=== PATIENT | female | born 1955 | race Caucasian/White ===

== ENCOUNTER 2024-10-11 16:43 | Emergency (ER) | payer MEDICARE, BC, SELFPAY ==
[2024-10-11 16:49] VITALS: BP 140/84; PULSE 96; RESP 18; TEMP 36.9; O2SAT 97
--- NOTE | 2024-10-11 17:12 | W.ED.GENAD ---
Discharge Plan Disposition Patient Disposition: Home Condition: Stable Discharge Details Clinical Impression: Arthritis of knee, right Primary Care Provider: Mariella Kirk ED Provider: Karen Moya Home Meds and New Rx's Prescriptions: No Action losartan 50 mg tablet 50 mg PO DAILY Discharge Instructions Instructions: Osteoarthritis Additional Instructions: You were seen in the emergency department today for evaluation of worsening of your knee pain, which is likely due to an exacerbation of your arthritis after abnormal positioning in the MRI. You received medications to improve pain and inflammation, and I recommend that you continue to use multimodal pain management including ice, rest and elevation, topical treatments. Please use therapeutic dosing of Tylenol (acetaminophen) & Advil (ibuprofen) in an alternating fashion as follows: Take 1000mg of Tylenol every 6 hours without missing doses- that is 4 times per day. Snf in between the Tylenol doses, take 600mg of Advil also on a 6 hour schedule, that is also 4 times per day. With this strategy, you will be taking something for fever/pain as often as every 3 hours. The daily maximum dosing of Tylenol is 4000mg, and the daily maximum dosing of Advil is 2400mg. Please note that some common cold medications & prescription pain medications may contain acetaminophen and you need to read OTC drug labels and factor that in to maximum daily doses. I have sent you home with a small number of stronger pain medications called morphine, which you can use in conjunction with the above-noted strategy for any ongoing severe pain. I recommend taking this medication at nighttime to start, and avoiding driving, operating machinery or other important activities until you know how your body reacts to this medication. I have sent a referral to establish with orthopedics through [facility], they should contact you by phone sometime next week. Please follow-up with your primary care provider in the next few days to discuss this visit and any symptoms that change, worsen, or persist. Thank you for allowing us to be part of your care. HPI General Mode of arrival: ambulatory. Date/Time Provider Initiated Documentation: 10/11/24 16:44. Limitations to Documentation: no limitations. Information obtained by: patient, family and old records reviewed. HPI Narrative: This is a 69-year-old female patient with past medical history significant for hypertension and right knee arthritis, presenting for evaluation of acute on chronic worsening of her right knee pain. The patient has been seen by her primary care provider who does knee injections, as well as physical therapy for this issue. She had an MRI performed yesterday at [facility] for further diagnostic clarity. She states that her knee was positioned awkwardly during this study, and this caused a significant exacerbation of her pain, that has persisted since this occurred. She reports that she had a difficult time sleeping last night and felt some nausea when she was unable to rest. She states that she has tried many interventions for her pain in the past, including Tylenol, ibuprofen, ice, bracing, lidoDerm, CBD ointment, and diclofenac gel. She has not had lasting success with these interventions and has not tried any of these interventions today. She reports that she did not sustain injury trauma or fall, has not noted any skin changes or fever. She feels that the pain is worst in the area of the tibial tuberosity/medial joint lines, and with extension of the knee. Related Data Home Medications ?Medication ?Instructions ?Recorded ?Confirmed losartan 50 mg tablet 50 mg PO DAILY 06/14/24 10/11/24 Allergies Allergy/AdvReac Type Severity Reaction Status Date / Time Penicillins AdvReac Intermediate Hives Verified 10/11/24 16:53 General Stated Complaint: Orthopedic JULITA: 4 Exam Narrative Exam Narrative: Gen: Awake and alert, in no apparent distress HEENT: Non-icteric sclera Neck: Supple Lungs: No apparent respiratory distress, normal respiratory effort. CV: Appears well perfused, strong distal pulses Abdomen: Non-distended MSK: Moves 4 extremities without apparent limitation in ROM with the exception of the right knee, which is painful with active extension of the knee. She has tenderness to palpation over the pes anserinus, no tenderness to palpation of the quadriceps or patellar tendon, patella itself, medial or lateral joint lines, or popliteal fossa. The overlying skin is without redness, induration, or swelling. She has no pain with passive range of motion of the knee. She has firm endpoints with Bonnie's testing as well as valgus and varus stressing. She has a very subtle knee effusion compared to her contralateral knee. No unilateral calf swelling or tenderness Skin: Visualized skin without rashes, cyanosis. Neuro: Normal Gait, no obvious focal deficits or facial asymmetry. Speaks in full, clear sentences. Psych: Appropriate for situation. Course Vital Signs Vital signs: Vital Signs Temperature 36.9 C 10/11/24 16:49 Pulse 96 H 10/11/24 16:49 Respiratory Rate 18 10/11/24 16:49 Blood Pressure 140/84 10/11/24 16:49 Pulse Oximetry 97 10/11/24 16:49 Temperature 36.9 C 10/11/24 16:49 Pulse 96 H 10/11/24 16:49 Respiratory Rate 18 10/11/24 16:49 Blood Pressure 140/84 10/11/24 16:49 Pulse Oximetry 97 10/11/24 16:49 Pain Level 5 10/11/24 17:10 Medical Decision Making This is a 69-year-old female patient presenting for evaluation of right-sided knee pain. My differential includes but is not limited to exacerbation of pain due to osteoarthritis, certainly considered sprain or strain, patient's examination is less concerning for septic arthritis, patient does not have trauma or injury to increase her risk of fracture or dislocation. I note no physical exam evidence concerning for significant internal derangement, considered meniscus disease. Overall, this is a patient with a reassuring physical examination who is hemodynamically appropriate, ambulatory, and with a preserved neurovascular examination distal to her pain. We had an extended Conversation regarding multimodal pain management and ultimately elected to proceed with Tylenol and Toradol as our initial pain management strategy. I provided the patient with ice and positioned her in a comfortably supported position. Given that the patient has just had an MRI, and has not had an additional injury, I do not feel that advanced imaging such as CT or x-ray would be beneficial or change the clinical course at this time. I do not see an indication to proceed with laboratory studies. - After Tylenol, Toradol, and ice the patient reports improvement in her pain and was able to ambulate appropriately. I did provide her with a short course of oral morphine for breakthrough pain management, and counseled her on multimodal pain management. I put a referral in for orthopedics, as she is not currently followed by any orthopedic team. At this time, the patient has had a full medical evaluation and is safe for discharge to home. They are hemodynamically stable, ambulatory, and tolerating PO. They are understanding of the follow-up plan and return precautions. They left our facility without incident. Karen Moya MD Quality:SDOH Health Related Social Needs: No Data to Display PFSH All Active Problems (Updated 05/24/25 @ 17:54 by Karen Moya MD) Arthritis of knee, right (Acute) Social History Smoking/Tobacco Use Status: Never Smoking risk assessment performed?: Yes Substance use type: does not use
[2024-10-11] MEDS: Acetaminophen 500 MG TAB 1000 MG PO (17:17)
[2024-10-11] MEDS: Ketorolac 15 MG/ML VIAL IM (17:18)
[2024-10-11] MEDS: MORPHine IR 15 MG TAB 60 MG PO (18:06)
== END 2024-10-11 18:14 | disposition home or self-care (01) ==
LOC: ER 18:00
PROVIDERS: Emergency Provider Emergency Medicine; PCP Family Medicine
DX: M13.861 Other specified arthritis, right knee (principal); I10 Essential (primary) hypertension
CPT/HCPCS: 96372; 99284; J1885